=== PATIENT | female | born 1955 | race Asian ===

== ENCOUNTER 2017-10-15 15:21 | Outpatient (CLI) | payer BC | END 2017-10-15 19:06 | disposition home or self-care (01) | LOC: MAMMO 15:21 | DX: Z12.31 Encounter for screening mammogram for malignant neoplasm of breast (principal) ==

== ENCOUNTER 2018-06-03 12:18 | Outpatient (CLI) | payer BC | END 2018-06-03 19:09 | disposition home or self-care (01) | LOC: RAD 12:18 | DX: M25.562 Pain in left knee (principal) ==

== ENCOUNTER 2019-01-10 13:15 | Outpatient (CLI) | payer BC ==
[2019-01-10 13:40] LABS: PLATELET COUNT 307 K/uL (152-353)
== END 2019-01-10 19:33 | disposition home or self-care (01) ==
LOC: LABW 13:15
PROVIDERS: Internal Medicine Rheumatology
DX: M06.89 Other specified rheumatoid arthritis, multiple sites (principal); Z79.899 Other long term (current) drug therapy
CPT/HCPCS: 36415; 80053; 85027; 86140

== ENCOUNTER 2019-10-01 13:08 | Emergency (ER) | payer OTHER ==
[~2019-10-01] VITALS: Ht 162.6 cm; Wt 77.1 kg
[2019-10-01 15:58] VITALS: BP 128/83; TEMP 97.7
== END 2019-10-01 16:00 | disposition home or self-care (01) ==
LOC: ED 13:08
DX: S23.3XXA Sprain of ligaments of thoracic spine, initial encounter (principal); S33.5XXA Sprain of ligaments of lumbar spine, initial encounter; M79.642 Pain in left hand; W01.0XXA Fall on same level from slipping, tripping and stumbling without subsequent striking against object, initial encounter; Y92.219 Unspecified school as the place of occurrence of the external cause
CPT/HCPCS: 99283

== ENCOUNTER 2020-06-20 14:41 | Outpatient (CLI) | payer BC | END 2020-06-20 23:59 | disposition home or self-care (01) | LOC: MAMMO 14:41 | DX: Z12.31 Encounter for screening mammogram for malignant neoplasm of breast (principal) ==

== ENCOUNTER 2021-08-16 09:19 | Outpatient (CLI) | payer BC | END 2021-08-16 20:08 | disposition home or self-care (01) | LOC: MAMMO 09:19 | PROVIDERS: ATTEND Registered Nurse | DX: Z12.31 Encounter for screening mammogram for malignant neoplasm of breast (principal) ==

== ENCOUNTER 2022-03-19 17:11 | Outpatient (CLI) | payer OTHER ==
[2022-03-19 17:28] LABS: PLATELET COUNT 292 K/uL (152-353)
[2022-03-19 17:41] LABS: POTASSIUM 3.9 mmol/L (3.6-5.2)
== END 2022-03-19 21:28 | disposition home or self-care (01) ==
LOC: LABW 17:11
PROVIDERS: ATTEND Internal Medicine Rheumatology
DX: M06.89 Other specified rheumatoid arthritis, multiple sites (principal); Z79.899 Other long term (current) drug therapy; M79.7 Fibromyalgia; L80 Vitiligo
CPT/HCPCS: 36415; 80053; 85027; 86140

== ENCOUNTER 2022-11-06 08:39 | Outpatient (CLI) | payer OTHER ==
[2022-11-06 09:17] LABS: PLATELET COUNT 284 K/uL (152-353)
[2022-11-06 09:25] LABS: POTASSIUM 3.7 mmol/L (3.6-5.2)
== END 2022-11-06 19:18 | disposition home or self-care (01) ==
LOC: LABW 08:39
PROVIDERS: ATTEND Registered Nurse
DX: Z00.00 Encounter for general adult medical examination without abnormal findings (principal); E55.9 Vitamin D deficiency, unspecified; R53.83 Other fatigue; E53.8 Deficiency of other specified B group vitamins; Z79.899 Other long term (current) drug therapy
CPT/HCPCS: 36415; 80053; 80061; 82306; 82607; 84439; 84443; 84481; 85027

== ENCOUNTER 2022-11-23 09:10 | Outpatient (CLI) | payer OTHER | END 2022-11-23 23:35 | disposition home or self-care (01) | LOC: MAMMO 09:10 | PROVIDERS: ATTEND Registered Nurse | DX: Z12.31 Encounter for screening mammogram for malignant neoplasm of breast (principal) ==

== ENCOUNTER 2023-02-11 10:28 | Outpatient (CLI) | payer OTHER ==
[2023-02-11 10:55] LABS: POTASSIUM 4.2 mmol/L (3.6-5.2)
[2023-02-11 10:58] LABS: PLATELET COUNT 323 K/uL (152-353)
== END 2023-02-11 21:31 | disposition home or self-care (01) ==
LOC: LABW 10:28
PROVIDERS: ATTEND Internal Medicine Rheumatology
DX: M06.89 Other specified rheumatoid arthritis, multiple sites (principal); Z79.899 Other long term (current) drug therapy
CPT/HCPCS: 36415; 80053; 85027; 86140